=== PATIENT | male | born 1950 ===

== ENCOUNTER 2017-05-23 05:44 | Day surgery (SDC) | payer OTHER ==
[2017-05-09 08:56] VITALS: BMI 27.8
[2017-05-23] MEDS ORDERED: Midazolam 2 MG/2 ML VIAL ONE (07:39)
[2017-05-23] MEDS ORDERED: Propofol 10 mg/ml Inj (20 ML) ONE (07:39)
[2017-05-23] MEDS ORDERED: Bupivacaine HCl 0.25% PF (10 ml) Inj ONE ×2 (07:40)
[2017-05-23] MEDS ORDERED: Rocuronium 10 mg/ml (5 ml) ONE (07:41)
[2017-05-23] MEDS: Bupivacaine-Epi 0.25%-1:200,000 PF Inj ONE ×2 (07:54→08:00)
[2017-05-23] MEDS: ceFAZolin IV 2 gm in Dextrose 2 GM/50 ML BAG IVPB ONE ×2 (07:55→08:30)
[2017-05-23] MEDS: Lidocaine 1% Inj (20ml) ONE ×2 (07:55→08:00)
[2017-05-23] MEDS ORDERED: Lactated Ringer's 1,000 ML IV ONE ×4 (07:55→09:43)
[2017-05-23] MEDS ORDERED: Neostigmine Methylsulfate 3mg/3ml Syringe IV ONE (09:44)
--- NOTE | 2017-05-23 10:16 | PCM.SURG1 ---
Surgeon's Initial Post Op Note - Surgeon's Notes Surgeon: Dr. Jeong Locomotive Operator Helper: Dr. Flor PGY2, Amy JACKMAN Type of Anesthesia: General Endo Pre-Operative Diagnosis: umbilical hernia Operative Findings: see dictation Post-Operative Diagnosis: same Operation Performed: robot-assisted laparoscopic umbilical hernia repair with mesh Specimen/Specimens Removed: hernia sac and contents Estimated Blood Loss: EBL {In ML}: 10 Blood Products Given: N/A Drains Used: No Drains Post-Op Condition: Good Date of Surgery/Procedure: 05/23/17 Time of Surgery/Procedure: 08:20
[2017-05-23] MEDS: HYDROmorphone 0.5 mg/0.5 ml ISec IVP PRN ×3 (10:21→12:13)
[2017-05-23] MEDS ORDERED: Glycopyrrolate 1 mg/5mL Inj MDV IV ONE (11:35)
--- NOTE | 2017-05-23 12:51 | OP ---
PROCEDURE DATE: 05/23/2017 PREOPERATIVE DIAGNOSIS: Umbilical hernia containing preperitoneal fat. POSTOPERATIVE DIAGNOSIS: Umbilical hernia containing preperitoneal fat. PROCEDURE DONE: 1. Robotic umbilical hernia repair with a mesh. 2. Laparoscopic bilateral TAP block placement. SURGEON: The procedure was done by Gigi miramontes MD. CORRECTIONAL SUPPLY SUPERVISOR: AUGUSTINA Taylor and Paty Flor DO, PGY-2 resident. TYPE OF ANESTHESIA: General endotracheal tube anesthesia. INTRAOPERATIVE FINDINGS: The patient had approximately 2 x 2 cm umbilical hernia with preperitoneal fat. ESTIMATED BLOOD LOSS: Around 10 mL. DRAIN: None. PATHOLOGY: Umbilical hernia sac and content were sent to the pathology. COMPLICATIONS: None. DESCRIPTION OF PROCEDURE: On intraoperative steps, this is a 66-year-old male who was diagnosed with umbilical hernia and the patient was consented for the umbilical hernia repair with a mesh, brought to the OR, placed supine on the operating table. After induction of the anesthesia, the abdomen was prepped and draped in usual sterile fashion. The left upper quadrant incision was made in the abdomen. After incising skin, using the Visi-Port technique, peritoneal cavity was entered, pneumo was created. Another two 8 mm ports were placed in the left flank and left upper quadrant and after that the robot was brought in. Camera arm as well as arm #1 and arm #2 were docked and through the console, the dissection of the hernial sac and content was done using the hook and the grasper and hemostasis was achieved and the specimen was sent off the table for the pathology. Now, the defect was closed with a #1 Prolene V-Loc continuous suture in a 2 layer and a 9 cm mesh was implanted. After proper implantation of the mesh, the laparoscopic first right-sided TAP block was given. Upper and lower 10 and 10 mL injection was given and on the left side, another 20 mL of local Marcaine was given and total 40 mL of Marcaine was given for the TAP block bilaterally and after that the pneumo was deflated. All the port was taken out under vision and all the port sites were closed in two layers, subcu with a 2-0 Vicryl, skin with a 4-0 Monocryl and dry sterile dressing was applied. The patient tolerated the procedure well. Count of the instrument and gauze was correct. There was no apparent complication. The patient was extubated in OR and sent to the Postanesthesia Care Unit in stable condition. Gigi Jeong MD
[2017-05-23 13:09] VITALS: RESP 16
[2017-05-23 13:38] VITALS: BP 141/75; PULSE 52; TEMP 97.5; O2SAT 97
== END 2017-05-23 13:45 | disposition home or self-care (01) ==
LOC: C.SDS 05:44
PROVIDERS: ATTEND Surgery Surgical Critical Care
DX: K42.9 Umbilical hernia without obstruction or gangrene (principal); I10 Essential (primary) hypertension
CPT/HCPCS: 49652; 88302; J0690; J1170; J2250; J2704; J2710; J3010; J7120